=== PATIENT | male | born 1995 | race Caucasian/White ===

== ENCOUNTER 2023-12-13 04:39 | Emergency (ER) | payer MEDICAID ==
[~2023-12-13] VITALS: Ht 172.7 cm; Wt 78.0 kg
[2023-12-13 04:42] VITALS: O2SAT 100
[2023-12-13] MEDS ORDERED: NALOXONE HCL 0.4MG/ML 1ML VIAL IM ONE (04:45)
[2023-12-13] MEDS ORDERED: NALO4SPR BOTHNSTRLS (05:42)
[2023-12-13] MEDS: NALOXONE HCL 0.4MG/ML 1ML VIAL IM NR (07:24)
[2023-12-13 07:40] VITALS: BP 105/56; PULSE 76; RESP 12; TEMP 97
== END 2023-12-13 07:41 | disposition home or self-care (01) ==
LOC: ER 04:39
DX: R41.82 Altered mental status, unspecified (principal); T50.7X1A Poisoning by analeptics and opioid receptor antagonists, accidental (unintentional), initial encounter; F31.9 Bipolar disorder, unspecified; F20.9 Schizophrenia, unspecified; Y92.89 Other specified places as the place of occurrence of the external cause
CPT/HCPCS: 71045; 93005; 96372; 99283; J2310; Z7610 ×2